=== PATIENT | female | born 1995 | race Caucasian/White ===

== ENCOUNTER 2017-04-05 20:39 | Emergency (ER) | payer OTHER ==
[2017-04-05 20:51] VITALS: BP 105/70; PULSE 82; TEMP 97.8; BMI 22.8
--- NOTE | 2017-04-05 22:24 | PDOC ---
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 Patient had been seen at urgent care twice and was given prescription for Chlortrimazole which patient applied twice daily patient reports that some of the areas look a little lawnmower repair mechanic than her surrounding skin and patient was concerned and wanted to come here to have an evaluation. There are no areas that are reddened or pruritic. Timing/Duration: changing over time Severity: moderate Associated Symptoms: reports: rash (circular areas of dry skin arms, legs torso non pruritic) Past History - Past Medical History Allergies/Adverse Reactions: Allergies Allergy/AdvReac Type Severity Reaction Status Date / Time No Known Allergies Allergy Verified 04/05/17 20:51 Home Medications: Ambulatory Orders Clotrimazole 30 ml TP BID 04/05/17 - Psycho/Social/Smoking Cessation Hx Suicidal Ideation: No Smoking History: Never smoked Information on smoking cessation initiated: No Hx Alcohol Use: No Drug/Substance Use Hx: No Review of Systems - Review of Systems Able to Perform ROS?: Yes Constitutional: No: Symptoms Reported HEENTM: No: Symptoms Reported Respiratory: No: Symptoms reported Cardiac (ROS): No: Symptoms Reported ABD/GI: No: Symptoms Reported : No: Symptoms Reported Integumentary: Yes: Rash (circular areas dried, non erythematous, slightly hypopigmented arms, legs & torso non confluent). No: Pruritus *Physical Exam - Vital Signs Last Vital Signs Temp Pulse Resp BP Pulse Ox 97.8 F 82 16 105/70 100 04/05/17 20:48 04/05/17 20:48 04/05/17 20:48 04/05/17 20:48 04/05/17 20:48 - Physical Exam General Appearance: Yes: Appropriately Dressed Respiratory/Chest: positive: Lungs Clear, Normal Breath Sounds. 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 Patient had been seen at urgent care twice and was given prescription for Chlortrimazole which patient applied twice daily patient reports that some of the areas look a little lawnmower repair mechanic than her surrounding skin and patient was concerned and wanted to come here to have an evaluation. There are no areas that are reddened or pruritic. Resolved Tinea Corposis PLAN: follow up with assistant teacher if any concerns Stop using clotrimazole cream *DC/Admit/Observation/Transfer Diagnosis at time of Disposition: H/O tinea corporis - Discharge Dispostion Disposition: HOME Condition at time of disposition: Stable - Referrals Referrals: Estevan Wilkerson [Primary Care Provider] - Ozzie Woo [Non Staff, Medical] - - Patient Instructions Additional Instructions: Stop using Chlortrimazole cream Follow-up with assistant teacher if symptoms worsen Patient voiced understanding of discharge instructions and all questions were answered thank you for using [facility] emergency room for your health care needs
== END 2017-04-05 22:52 | disposition home or self-care (01) ==
LOC: JERFT 20:39
DX: B35.4 Tinea corporis (principal)
CPT/HCPCS: 99281-25

== ENCOUNTER 2019-04-29 16:19 | Emergency (ER) | payer OTHER ==
--- NOTE | 2019-04-29 16:42 | PDOC ---
Rapid Medical Evaluation Time Seen by Provider: 04/29/19 16:38 Medical Evaluation: Allergies Allergy/AdvReac Type Severity Reaction Status Date / Time No Known Allergies Allergy Verified 01/25/18 19:35 04/29/19 16:38 I have performed a brief in-person evaluation of this patient. The patient presents with a chief complaint of: 1 month of sore throat and L earache. no fever/vomiting, no cough. Negative strep by PMD, was told it was allergies, stopped taking anna marie which is not helping. Pertinent physical exam findings: I have ordered the following: strep The patient will proceed to the ED for further evaluation. Discharge Disposition - Diagnosis Sore throat - Referrals - Patient Instructions - Post Discharge Activity
[2019-04-29 16:50] VITALS: BP 121/79; BMI 21.5
[2019-04-29 16:54] VITALS: PULSE 113; TEMP 98.1
--- NOTE | 2019-04-29 16:57 | PDOC ---
History of Present Illness - General Chief Complaint: Sore Throat Stated Complaint: SORE THROAT Time Seen by Provider: 04/29/19 16:38 History Source: Patient - History of Present Illness Timing/Duration: reports: other Severity: reports: moderate Past History - Past Medical History Allergies/Adverse Reactions: Allergies Allergy/AdvReac Type Severity Reaction Status Date / Time No Known Allergies Allergy Verified 04/29/19 16:38 Home Medications: Ambulatory Orders NK [No Known Home Medication] 04/29/19 COPD: No - Psycho Social/Smoking Cessation Hx Smoking History: Never smoked Have you smoked in the past 12 months: No Hx Alcohol Use: No Drug/Substance Use Hx: No Substance Use Type: None Review of Systems - Review of Systems Constitutional: No: Chills, Fever HEENTM: Yes: Ear Pain, Throat Pain. No: Nose Congestion, Throat Swelling Respiratory: No: Cough *Physical Exam - Vital Signs Last Vital Signs Temp Pulse Resp BP Pulse Ox 98.6 F 121 H 18 121/79 99 04/29/19 16:39 04/29/19 16:39 04/29/19 16:39 04/29/19 16:39 04/29/19 16:39 - Physical Exam General Appearance: Yes: Appropriately Dressed. No: Apparent Distress HEENT: positive: Normal ENT Inspection, Normal Voice, TMs Normal, Pharynx Normal , Other (no ttp over L TMJ). negative: Scleral Icterus (R), Scleral Icterus (L) Neck: positive: Supple Respiratory/Chest: negative: Respiratory Distress Integumentary: positive: Dry, Warm Neurologic: positive: Fully Oriented, Alert, Normal Mood/Affect Medical Decision Making - Medical Decision Making 04/29/19 16:51 24-year-old female denies any past medical history here with persistent sore throat and left ear pain. Patient states she has had pain for 1 month on and off. Has been seen by PMD and ruled out for strep. Taking [place] with no relief. Pain currently improved. Denies any cough, otorrhea, rhinorrhea, congestion or nausea. see exam Ear/throat pain x 1 month R/o strep recently No tob use HEENT exam wnl DC w/ ENT referral for further eval Elevated HR 121 at triage, 113 on rpt No weakness/dizziness/palpitations/CP/SOB No h/o anxiety Well roney No intervention needed in ER Discharge - Discharge Information Problems reviewed: Yes Clinical Impression/Diagnosis: Sore throat, Ear pain, left Disposition: HOME - Follow up/Referral Referrals: Sushil Vargas [Primary Care Provider] - Roberto Dominguez MD [Staff Physician] - - Patient Discharge Instructions Additional Instructions: The cause of her symptoms are unclear at this time as your exam is normal. Take Motrin or Tylenol as needed for pain and follow-up with Dr. Dominguez of ENT for further evaluation - Post Discharge Activity
== END 2019-04-29 17:01 | disposition home or self-care (01) ==
LOC: JERFT 16:19
DX: J02.9 Acute pharyngitis, unspecified (principal); H92.02 Otalgia, left ear
CPT/HCPCS: 87070; 87880; 99282-25